=== PATIENT | female | born 1950 | race Hispanic/Latino ===

== ENCOUNTER 2019-10-02 21:19 | Emergency (ER) | payer MEDICAID, MEDICARE, OTHER ==
[2019-10-02] MEDS ORDERED: ACETAMINOPHEN EXTRA STRENGTH 500 MG TABLET ONE (21:56)
[2019-10-02 22:14] LABS: BASOPHILS % (AUTO) 0.3 % (0.0-5.0); EOSINOPHILS % (AUTO) 0.1 % (0.0-8.0); HEMATOCRIT 41.6 % (36-48); LYMPHOCYTES % (AUTO) 10.9 % (21.0-51.0); MEAN CORPUSCULAR HEMOGLOBIN 29.9 pg (27.0-33.0); MEAN CORPUSCULAR HGB CONC 32.7 g/dL (32.0-36.0); MEAN CORPUSCULAR VOLUME 91.4 fL (79-99); MONOCYTES % (AUTO) 1.8 % (3.0-13.0); NEUTROPHILS % (AUTO) 86.4 % (40.0-77.0); PLATELET COUNT (AUTO) 299 K/uL (130-400); RED BLOOD CELL COUNT(AUTO) 4.55 MIL/uL (4.00-5.50); RED CELL DISTRIBUTION WIDTH 13.2 % (11.0-15.5); WHITE BLOOD COUNT (AUTO) 11.3 K/uL (4.8-10.8)
[2019-10-02 22:25] LABS: POTASSIUM 3.9 mmol/L (3.5-5.1)
== END 2019-10-02 23:09 | disposition home or self-care (01) ==
LOC: EDH 21:19
DX: I16.0 Hypertensive urgency (principal); F32.9 Major depressive disorder, single episode, unspecified
CPT/HCPCS: 36415; 80048; 84484; 85025; 93005

== ENCOUNTER 2019-10-15 17:46 | Emergency (ER) | payer MEDICARE ==
[2019-10-15 18:36] LABS: BASOPHILS % (AUTO) 0.3 % (0.0-5.0); EOSINOPHILS % (AUTO) 1.4 % (0.0-8.0); HEMATOCRIT 40.9 % (36-48); LYMPHOCYTES % (AUTO) 20.1 % (21.0-51.0); MEAN CORPUSCULAR HGB CONC 32.5 g/dL (32.0-36.0); MEAN CORPUSCULAR VOLUME 92.1 fL (79-99); MONOCYTES % (AUTO) 4.7 % (3.0-13.0); NEUTROPHILS % (AUTO) 73.2 % (40.0-77.0); PLATELET COUNT (AUTO) 286 K/uL (130-400); RED BLOOD CELL COUNT(AUTO) 4.44 MIL/uL (4.00-5.50); RED CELL DISTRIBUTION WIDTH 13.2 % (11.0-15.5); WHITE BLOOD COUNT (AUTO) 10.3 K/uL (4.8-10.8)
[2019-10-15 18:47] LABS: CREATININE 0.7 mg/dL (0.5-1.5); POTASSIUM 3.2 mmol/L (3.5-5.1)
[2019-10-15 18:48] LABS: PROTHROMBIN TIME 10.5 SEC (9.6-11.6)
[2019-10-15 18:52] LABS: ALBUMIN 3.2 g/dL (3.5-5.0); BILIRUBIN,TOTAL 0.4 mg/dL (0.2-1.0); TOTAL PROTEIN, SERUM 7.8 g/dL (6.0-8.3)
[2019-10-15 18:57] LABS: CREATINE KINASE, TOTAL 97 U/L (21-232); MYOGLOBIN 46 ng/mL (10-92); TROPONIN I < 0.04 ng/mL (0.00-0.06)
[2019-10-15] MEDS ORDERED: POTASSIUM CHLORIDE 20 MEQ ERTAB PO ONE (20:10)
== END 2019-10-15 20:37 | disposition home or self-care (01) ==
LOC: EDH 17:46
DX: I10 Essential (primary) hypertension (principal); E87.6 Hypokalemia; F31.9 Bipolar disorder, unspecified
CPT/HCPCS: 36415; 71045; 80053; 82550; 83874; 83880; 84484; 85025; 85610; 85730; 93005

== ENCOUNTER 2019-10-16 02:23 | Emergency (ER) | payer MEDICARE ==
[2019-10-16] MEDS ORDERED: ORPHENADRINE CITRATE 30 MG/ML ML ONE (03:02)
[2019-10-16] MEDS ORDERED: KETOROLAC TROMETHAMINE 60 MG/2 ML VIAL ONE (03:02)
[2019-10-16] MEDS ORDERED: LIDOCAINE 5% TOPICAL PATCH TP ONE (03:03)
== END 2019-10-16 04:54 | disposition home or self-care (01) ==
LOC: EDH 02:23
DX: R51 Headache (principal); M62.838 Other muscle spasm; H93.13 Tinnitus, bilateral; F32.9 Major depressive disorder, single episode, unspecified; I10 Essential (primary) hypertension
CPT/HCPCS: 70450; 96372 ×2; 99284; J1885; J2360

== ENCOUNTER 2020-09-11 19:55 | Inpatient (IN) | payer MEDICARE ==
[~2020-09-11] VITALS: Ht 157.5 cm; Wt 116.0 kg
[2020-09-11] MEDS ORDERED: CEFTRIAXONE 1G VIAL ONE (20:12)
[2020-09-11 20:19] LABS: APPEARANCE,URINE Cloudy (CLEAR); BILIRUBIN,URINE Small (NEGATIVE); COLOR,URINE Dark Yellow (YELLOW); GLUCOSE, URINE (UA) Negative (NEGATIVE); KETONES,URINE Trace mg/dL (NEGATIVE); LEUKOCYTE ESTERASE ,URINE Trace (NEGATIVE); NITRATE,URINE Negative (NEGATIVE); OCCULT BLOOD,URINE Negative (NEGATIVE); PH,URINE 5.5 (5.0-8.0); PROTEIN,URINE POS 2+ mg/dL (NEGATIVE)
[2020-09-11 20:21] LABS: BASOPHILS % (AUTO) 0.2 % (0.0-5.0); EOSINOPHILS % (AUTO) 0.2 % (0.0-8.0); HEMATOCRIT 33.1 % (36-48); LYMPHOCYTES % (AUTO) 18.9 % (21.0-51.0); MEAN CORPUSCULAR HEMOGLOBIN 30.2 pg (27.0-33.0); MEAN CORPUSCULAR HGB CONC 34.4 g/dL (32.0-36.0); MEAN CORPUSCULAR VOLUME 87.8 fL (79-99); PLATELET COUNT (AUTO) 217 K/uL (130-400); RED BLOOD CELL COUNT(AUTO) 3.77 MIL/uL (4.00-5.50); RED CELL DISTRIBUTION WIDTH 12.8 % (11.0-15.5); WHITE BLOOD COUNT (AUTO) 12.2 K/uL (4.8-10.8)
[2020-09-11] MEDS ORDERED: CEFTRIAXONE 2GM VIAL ONE (20:31)
[2020-09-11 20:35] LABS: INR 1.18 (0.85-1.15); PROTHROMBIN TIME 12.4 SEC (9.6-11.6)
[2020-09-11 20:36] LABS: BACTERIA,URINE Few /HPF (None Seen); MUCUS,URINE Few LPF (None Seen); SQUAMOUS EPITHELIAL CELL,UR Many /HPF (0-2)
[2020-09-11 20:36] LABS: PARTIAL THROMBOPLASTIN TIME 29.8 SEC (26.3-35.5)
[2020-09-11 20:37] LABS: CARBON DIOXIDE 23 mmol/L (21-32); CHLORIDE 93 mmol/L (101-111); CREATININE 1.1 mg/dL (0.5-1.5); GLOMERULAR FILTR. RATE CALC 52 mL/min (>60); GLUCOSE,RANDOM 115 mg/dL (70-105); POTASSIUM 3.7 mmol/L (3.5-5.1); SODIUM SERUM 127 mmol/L (136-145); UREA NITROGEN, BLOOD 16 mg/dL (7-18)
[2020-09-11 20:42] LABS: B-TYPE NATRIURETIC PEPTIDE 57 pg/mL (0-100)
[2020-09-11 20:50] LABS: ALANINE AMINOTRANSFERASE 54 U/L (12-78); ALBUMIN 2.6 g/dL (3.5-5.0); ASPARTATE AMINOTRANSFERASE 75 U/L (10-37); BILIRUBIN,TOTAL 0.4 mg/dL (0.2-1.0); CREATINE KINASE, TOTAL 339 U/L (21-232); MYOGLOBIN 316 ng/mL (10-92); TOTAL PROTEIN, SERUM 7.1 g/dL (6.0-8.3); TROPONIN I < 0.04 ng/mL (0.00-0.06)
[2020-09-11] MEDS ORDERED: ACETAMINOPHEN 325 MG TAB PO PRN (23:00)
[2020-09-11] MEDS ORDERED: ONDANSETRON 4MG INJ IV PRN (23:00)
[2020-09-11] MEDS ORDERED: CEFTRIAXONE 1G VIAL IV SCH (23:00)
[2020-09-11] MEDS ORDERED: LACTULOSE 20 GM/30 ML UDCUP PO PRN (23:00)
[2020-09-11] MEDS: MIDODRINE HCL 5 MG TABLET PO SCH (23:00)
[2020-09-11] MEDS ORDERED: MIDODRINE HCL 5 MG TABLET ONE (23:34)
[2020-09-12] MEDS ORDERED: ACETAMINOPHEN 325 MG TAB ONE ×2 (02:31→16:20)
[2020-09-12 06:51] LABS: BASOPHILS % (AUTO) 0.3 % (0.0-5.0); EOSINOPHILS % (AUTO) 0.1 % (0.0-8.0); LYMPHOCYTES % (AUTO) 13.5 % (21.0-51.0); MEAN CORPUSCULAR HGB CONC 33.3 g/dL (32.0-36.0); MEAN CORPUSCULAR VOLUME 90.1 fL (79-99); MONOCYTES % (AUTO) 3.4 % (3.0-13.0); NEUTROPHILS % (AUTO) 82.2 % (40.0-77.0); PLATELET COUNT (AUTO) 183 K/uL (130-400); RED BLOOD CELL COUNT(AUTO) 3.33 MIL/uL (4.00-5.50); RED CELL DISTRIBUTION WIDTH 12.9 % (11.0-15.5); WHITE BLOOD COUNT (AUTO) 11.7 K/uL (4.8-10.8)
[2020-09-12 07:13] LABS: POTASSIUM 3.9 mmol/L (3.5-5.1)
[2020-09-12] MEDS ORDERED: LISI20TA24 PO (08:44)
[2020-09-12] MEDS ORDERED: DULO40CA2 PO (08:44)
[2020-09-12] MEDS ORDERED: ROSU5TAB PO (08:44)
[2020-09-12] MEDS ORDERED: TIZA-194 PO (08:44)
[2020-09-12] MEDS ORDERED: HYDR-4153 PO (08:44)
[2020-09-12] MEDS ORDERED: CLON0.1T PO (08:44)
[2020-09-12] MEDS ORDERED: METO50TA18 PO (08:44)
[2020-09-12] MEDS ORDERED: BUPR-317 PO (08:44)
[2020-09-12] MEDS ORDERED: LOPERAMIDE HCL 2 MG CAP PO ONE (13:07)
[2020-09-12] MEDS ORDERED: LOPERAMIDE 1 MG/7.5 ML UDCUP PO PRN (13:15)
[2020-09-12] MEDS: 0.9%NACL 1000ML 1,000 ML IV SCH (19:00)
[2020-09-12] MEDS ORDERED: CEFTRIAXONE 1G VIAL ONE (20:48)
[2020-09-12] MEDS ORDERED: FAMOTIDINE 20MG TAB ONE (20:48)
[2020-09-12] MEDS: FAMOTIDINE 20MG TAB PO SCH (21:00)
[2020-09-12 21:30] VITALS: BP 101/64
[2020-09-12] MEDS: ACETAMINOPHEN 325 MG TAB PO PRN (22:40)
[2020-09-12] MEDS: MIDODRINE HCL 5 MG TABLET PO SCH (23:00)
[2020-09-12 23:51] VITALS: BP 114/47
[2020-09-13] MEDS: ACETAMINOPHEN 325 MG TAB PO PRN ×3 (03:50→20:49)
[2020-09-13 04:25] VITALS: BP 140/62
[2020-09-13] MEDS: 0.9%NACL 1000ML 1,000 ML IV SCH ×2 (05:18→15:00)
[2020-09-13 08:00] VITALS: BP 128/71
[2020-09-13] MEDS: FAMOTIDINE 20MG TAB PO SCH ×2 (09:17→20:51)
[2020-09-13 12:00] VITALS: BP 191/70
[2020-09-13 13:18] VITALS: BP 165/67
[2020-09-13] MEDS: CLONIDINE HCL 0.1 MG TABLET PO SCH ×2 (13:51→18:32)
[2020-09-13] MEDS: HYDRALAZINE 25MG TABLET PO SCH ×2 (13:51→20:52)
[2020-09-13 14:34] LABS: HEMATOCRIT 31.2 % (36-48); MEAN CORPUSCULAR HEMOGLOBIN 30.3 pg (27.0-33.0); MEAN CORPUSCULAR HGB CONC 33.7 g/dL (32.0-36.0); MEAN CORPUSCULAR VOLUME 90.2 fL (79-99); PLATELET COUNT (AUTO) 223 K/uL (130-400); RED BLOOD CELL COUNT(AUTO) 3.46 MIL/uL (4.00-5.50); RED CELL DISTRIBUTION WIDTH 13.2 % (11.0-15.5); WHITE BLOOD COUNT (AUTO) 10.9 K/uL (4.8-10.8)
[2020-09-13 15:01] LABS: BAND NEUTROPHILS % (MANUAL) 20 % (0-2); LYMPHOCYTES % (MANUAL) 3 % (22-44); REACTIVE LYMPHOCYTES 6 % (0-0); SEGMENTED NEUTROPHILS % 71 % (40-70)
[2020-09-13 15:02] LABS: MAN.DIFF COMMENT-IMPRESSION MANUAL DIFFERENTIAL
[2020-09-13 16:00] VITALS: BP_SYST 112; BP_SYST 128; BP_DIAS 55; BP_DIAS 71
[2020-09-13] MEDS: LISINOPRIL 20 MG TABLET PO SCH (16:30)
[2020-09-13 20:43] VITALS: BP 140/87
[2020-09-13] MEDS: ATORVASTATIN 10 MG TABLET PO SCH (20:51)
[2020-09-13] MEDS: METOPROLOL TARTRATE 50 MG TAB PO SCH (20:51)
[2020-09-13] MEDS: CEFTRIAXONE 1G VIAL IV SCH (20:51)
[2020-09-13] MEDS: DULOXETINE 40 MG PO SCH (20:57)
[2020-09-14 00:05] VITALS: BP 109/61
[2020-09-14] MEDS: CLONIDINE HCL 0.1 MG TABLET PO SCH ×2 (00:30→07:15)
[2020-09-14] MEDS: 0.9%NACL 1000ML 1,000 ML IV SCH ×2 (01:34→23:11)
[2020-09-14 04:19] VITALS: BP 133/56
[2020-09-14] MEDS: ACETAMINOPHEN 325 MG TAB PO PRN ×4 (04:40→23:10)
[2020-09-14 06:13] LABS: BASOPHILS % (AUTO) 0.3 % (0.0-5.0); EOSINOPHILS % (AUTO) 0.1 % (0.0-8.0); HEMATOCRIT 28.2 % (36-48); LYMPHOCYTES % (AUTO) 18.6 % (21.0-51.0); MEAN CORPUSCULAR HGB CONC 33.7 g/dL (32.0-36.0); MONOCYTES % (AUTO) 4.2 % (3.0-13.0); NEUTROPHILS % (AUTO) 75.7 % (40.0-77.0); PLATELET COUNT (AUTO) 222 K/uL (130-400); RED BLOOD CELL COUNT(AUTO) 3.17 MIL/uL (4.00-5.50); RED CELL DISTRIBUTION WIDTH 13.1 % (11.0-15.5); WHITE BLOOD COUNT (AUTO) 9.4 K/uL (4.8-10.8)
[2020-09-14 06:34] LABS: CREATININE 0.8 mg/dL (0.5-1.5); POTASSIUM 3.8 mmol/L (3.5-5.1)
[2020-09-14 08:00] VITALS: BP 115/62
[2020-09-14] MEDS: LISINOPRIL 20 MG TABLET PO SCH (08:02)
[2020-09-14] MEDS: METOPROLOL TARTRATE 50 MG TAB PO SCH ×2 (08:02→22:55)
[2020-09-14] MEDS: FAMOTIDINE 20MG TAB PO SCH ×2 (08:02→22:54)
[2020-09-14] MEDS: HYDRALAZINE 25MG TABLET PO SCH (08:03)
[2020-09-14 11:00] VITALS: BP_SYST 107; BP_SYST 112; BP_DIAS 50; BP_DIAS 65
[2020-09-14] MEDS: BUPROPION HCL 150 MG TABLET.SA PO SCH (12:25)
[2020-09-14] MEDS: DOXYCYCLINE 100MG+NS 250ML 250 ML IV SCH (17:17)
[2020-09-14 20:17] VITALS: BP 141/63
[2020-09-14] MEDS: DULOXETINE 40 MG PO SCH (21:00)
[2020-09-14] MEDS: CEFTRIAXONE 1G VIAL IV SCH (22:54)
[2020-09-14] MEDS: ATORVASTATIN 10 MG TABLET PO SCH (22:54)
[2020-09-14 23:51] VITALS: BP 163/69
[2020-09-15] MEDS: DOXYCYCLINE 100MG+NS 250ML 250 ML IV SCH ×2 (03:24→16:46)
[2020-09-15 03:36] VITALS: BP 124/75
[2020-09-15 03:39] LABS: BASOPHILS % (AUTO) 0.3 % (0.0-5.0); EOSINOPHILS % (AUTO) 0.3 % (0.0-8.0); HEMATOCRIT 29.9 % (36-48); LYMPHOCYTES % (AUTO) 28.9 % (21.0-51.0); MEAN CORPUSCULAR HEMOGLOBIN 29.4 pg (27.0-33.0); MEAN CORPUSCULAR HGB CONC 32.4 g/dL (32.0-36.0); MEAN CORPUSCULAR VOLUME 90.6 fL (79-99); MONOCYTES % (AUTO) 3.8 % (3.0-13.0); NEUTROPHILS % (AUTO) 65.6 % (40.0-77.0); PLATELET COUNT (AUTO) 243 K/uL (130-400); RED CELL DISTRIBUTION WIDTH 13.3 % (11.0-15.5); WHITE BLOOD COUNT (AUTO) 9.3 K/uL (4.8-10.8)
[2020-09-15 04:05] LABS: ALBUMIN 1.9 g/dL (3.5-5.0); BILIRUBIN,TOTAL 0.2 mg/dL (0.2-1.0); CREATININE 0.9 mg/dL (0.5-1.5); MAGNESIUM 1.8 mg/dL (1.80-2.40); PHOSPHORUS 4.2 mg/dL (2.5-4.9); POTASSIUM 3.9 mmol/L (3.5-5.1); TOTAL PROTEIN, SERUM 6.4 g/dL (6.0-8.3)
[2020-09-15] MEDS: 0.9%NACL 1000ML 1,000 ML IV SCH ×2 (06:48→16:51)
[2020-09-15 08:11] VITALS: BP 126/59
[2020-09-15] MEDS: FAMOTIDINE 20MG TAB PO SCH ×2 (08:52→20:44)
[2020-09-15] MEDS: METOPROLOL TARTRATE 50 MG TAB PO SCH ×2 (08:52→20:44)
[2020-09-15 11:45] VITALS: BP 132/64
[2020-09-15] MEDS: BUPROPION HCL 150 MG TABLET.SA PO SCH (12:37)
[2020-09-15] MEDS: ACETAMINOPHEN 325 MG TAB PO PRN (12:54)
[2020-09-15 16:35] VITALS: BP 135/87
[2020-09-15 20:07] VITALS: BP 153/78
[2020-09-15] MEDS: ATORVASTATIN 10 MG TABLET PO SCH (20:44)
[2020-09-15] MEDS: DULOXETINE 40 MG PO SCH (20:45)
[2020-09-15] MEDS: CEFTRIAXONE 1G VIAL IV SCH (20:45)
[2020-09-15 23:42] VITALS: BP 157/75
[2020-09-16] MEDS: DOXYCYCLINE 100MG+NS 250ML 250 ML IV SCH (02:35)
[2020-09-16] MEDS: 0.9%NACL 1000ML 1,000 ML IV SCH (02:36)
[2020-09-16 04:14] VITALS: BP 145/75
[2020-09-16 08:00] VITALS: BP 150/59
[2020-09-16] MEDS: BUPROPION HCL 150 MG TABLET.SA PO SCH (08:32)
[2020-09-16] MEDS: FAMOTIDINE 20MG TAB PO SCH (08:32)
[2020-09-16] MEDS: METOPROLOL TARTRATE 50 MG TAB PO SCH (08:32)
[2020-09-16] MEDS ORDERED: DOXY100T21 PO (10:55)
[2020-09-16] MEDS ORDERED: CEPH500C2 PO (10:58)
[2020-09-16 12:48] VITALS: BP 147/74
[2020-09-16] MEDS ORDERED: DOXYCYCLINE HYCLATE 100 MG TABLET PO SCH (21:00)
== END 2020-09-16 15:00 | disposition home or self-care (01) | DRG 871 ==
LOC: EDH 19:55 → EDHIP 23:00 → 4BH 09-12 21:25
PROVIDERS: ADMIT Family Medicine; ATTEND Family Medicine
DX: A41.50 Gram-negative sepsis, unspecified (principal); G93.41 Metabolic encephalopathy; N39.0 Urinary tract infection, site not specified; E87.1 Hypo-osmolality and hyponatremia; M62.82 Rhabdomyolysis; Z68.42 Body mass index [BMI] 45.0-49.9, adult; E86.0 Dehydration; I10 Essential (primary) hypertension; B96.1 Klebsiella pneumoniae [K. pneumoniae] as the cause of diseases classified elsewhere; E66.9 Obesity, unspecified; F32.9 Major depressive disorder, single episode, unspecified; R53.81 Other malaise; Z20.822 Contact with and (suspected) exposure to COVID-19
CPT/HCPCS: 36415; 70486; 71045; 76770; 80048; 80053; 81001; 82550; 83605; 83690; 83735; 83874; 83880; 84100; 84145; 84443; 84484; 85025; 85610; 85730; 86140; 86757; 86900; 86901; 87040; 87046; 87077; 87088; 87186; 87324; 87426; 87804; 93005; 97039; G0378; J0696; J3490; U0003

== ENCOUNTER 2021-12-11 03:15 | Emergency (ER) | payer MEDICARE ==
[~2021-12-11] VITALS: Ht 157.5 cm; Wt 119.7 kg
[~2021-12-11 03:15] MED LIST: BUPR-317 PO; CEPH500C2 PO; CLON0.1T PO; DOXY100T21 PO; DULO40CA2 PO; HYDR-4153 PO; LISI20TA24 PO; METO50TA18 PO; ROSU5TAB PO; TIZA-194 PO
[2021-12-11 04:14] LABS: BASOPHILS % (AUTO) 0.4 % (0.0-5.0); HEMATOCRIT 40.1 % (36-48); LYMPHOCYTES % (AUTO) 22.8 % (21.0-51.0); MEAN CORPUSCULAR HEMOGLOBIN 31.7 pg (27.0-33.0); MEAN CORPUSCULAR HGB CONC 32.9 g/dL (32.0-36.0); MEAN CORPUSCULAR VOLUME 96.2 fL (79-99); MONOCYTES % (AUTO) 6.2 % (3.0-13.0); NEUTROPHILS % (AUTO) 68.1 % (40.0-77.0); PLATELET COUNT (AUTO) 194 K/uL (130-400); RED BLOOD CELL COUNT(AUTO) 4.17 MIL/uL (4.00-5.50); RED CELL DISTRIBUTION WIDTH 12.9 % (11.0-15.5); WHITE BLOOD COUNT (AUTO) 10.4 K/uL (4.8-10.8)
[2021-12-11 04:27] LABS: ALBUMIN 2.9 g/dL (3.5-5.0); BILIRUBIN,TOTAL 0.5 mg/dL (0.2-1.0); POTASSIUM 3.5 mmol/L (3.5-5.1)
[2021-12-11 04:48] LABS: TOTAL PROTEIN, SERUM 8.1 g/dL (6.0-8.3)
[2021-12-11] MEDS ORDERED: 0.9%NACL 1000ML 1,000 ML IV ONE (04:50)
[2021-12-11] MEDS ORDERED: 0.9%NACL 1000ML 1,000 ML IV SCH ×2 (05:00→06:30)
[2021-12-11] MEDS ORDERED: FAMOTIDINE 20MG VIAL IV ONE (06:00)
[2021-12-11] MEDS ORDERED: PANTOPRAZOLE 40 MG/VIAL IVP ONE (06:00)
[2021-12-11] MEDS ORDERED: LOPERAMIDE HCL 2 MG CAP PO ONE (06:00)
[2021-12-11] MEDS ORDERED: ONDANSETRON 4MG INJ IVP ONE (06:00)
[2021-12-11] MEDS ORDERED: HYOSCYAMINE SULFATE 0.125 MG TAB.SUBL SL ONE (06:00)
[2021-12-11] MEDS ORDERED: HYOS-28 PO (07:40)
[2021-12-11] MEDS ORDERED: ONDA4TAB10 PO (07:40)
[2021-12-11] MEDS ORDERED: PANT40TA PO (07:40)
[2021-12-11 08:18] LABS: APPEARANCE,URINE CLEAR (CLEAR); BILIRUBIN,URINE NEGATIVE (NEGATIVE); COLOR,URINE YELLOW (YELLOW); GLUCOSE, URINE (UA) NEGATIVE (NEGATIVE); KETONES,URINE NEGATIVE (NEGATIVE); LEUKOCYTE ESTERASE ,URINE NEGATIVE (NEGATIVE); NITRATE,URINE NEGATIVE (NEGATIVE); OCCULT BLOOD,URINE NEGATIVE (NEGATIVE); PROTEIN,URINE NEGATIVE (NEGATIVE); UROBILINOGEN,URINE 0.2 mg/dL (0.2-1.0)
[2021-12-11 08:43] VITALS: BP 109/51
== END 2021-12-11 08:45 | disposition home or self-care (01) ==
LOC: EDH 03:15
DX: E86.9 Volume depletion, unspecified (principal); R19.7 Diarrhea, unspecified; R10.10 Upper abdominal pain, unspecified; I10 Essential (primary) hypertension; Z79.899 Other long term (current) drug therapy
CPT/HCPCS: 36415; 80053; 81003; 83690; 85025; 87324; 96361; 96374; 96375; 99285; C9113; J2405; J3490; J7030

== ENCOUNTER → 2022-07-23 | Outpatient (CLI) | payer OTHER ==
[~2022-07-23] MED LIST changes: +HYOS-28 PO; +ONDA4TAB10 PO; +PANT40TA PO
== END | disposition home or self-care (01) ==
LOC: RAH 07:52
PROVIDERS: ATTEND Internal Medicine
DX: R74.8 Abnormal levels of other serum enzymes (principal); R79.89 Other specified abnormal findings of blood chemistry
CPT/HCPCS: 76700